=== PATIENT | female | born 1990 | race Two or more races ===

== ENCOUNTER → 2017-06-15 | Outpatient (CLI) | payer OTHER ==
--- NOTE | 2017-06-15 09:09 | US ---
EXAMINATION TYPE: US abdomen complete DATE OF EXAM: 06/15/2017 COMPARISON: NONE CLINICAL HISTORY: R10.13 Epigastric pain. Patient states having epigastric pain since she had a scop e performed. GB removed in 2010 EXAM MEASUREMENTS: Liver Length: 18.2 cm CHD: 1.1 cm Spleen: 12.6 cm Right Kidney: 11.4 x 5.9 x 5.2 cm Left Kidney: 11.5 x 5.8 x 5.4 cm Pancreas: obscured by overlying bowel gas Liver: Enlarged Gallbladder: Surgically absent Evidence for sonographic Carroll's sign: neg CHD: Appears slightly dilated Spleen: wnl Right Kidney: wnl Left Kidney: wnl Upper IVC: wnl Abd Aorta: No AAA visualized as seen, portions of proximal aorta obscured by overlying bowel gas IMPRESSION: 1. Hepatomegaly. 2 postcholecystectomy. Common bile duct at the upper limits of normal 1.1 cm
== END | disposition home or self-care (01) ==
LOC: RADUSMAIN 08:03
PROVIDERS: ATTEND Internal Medicine Gastroenterology
DX: R16.0 Hepatomegaly, not elsewhere classified (principal); Z90.49 Acquired absence of other specified parts of digestive tract
CPT/HCPCS: 76700; 80074

== ENCOUNTER → 2017-07-15 | Outpatient (CLI) | payer OTHER ==
[2017-07-15 10:55] LABS: Bilirubin, Delta 0.1 mg/dL (0.0-0.2); Total Bilirubin 0.2 mg/dL (0.2-1.3); Total Protein 6.8 g/dL (6.3-8.2)
[2017-07-15 16:34] LABS: Iron Saturation 19.94 (12.00-45.00); Iron(FE) 71 ug/dL (50-170); Total Iron Binding Capacity 356 ug/dL (228-460)
[2017-07-15 17:08] LABS: ACTH 8.04 pg/mL (0.00-45.99)
[2017-07-15 18:26] LABS: ANA w/Reflex to Titer NEGATIVE (NEGATIVE)
[2017-07-20 11:36] LABS: Epinephrine 24 Hr Urine <2 ug/day (0-20); Norepinephrine 24 Hr Urine 37 ug/day (15-80); Total Catecholamines Urine 37 ug/day (15-100); Urine Creatinine,24 Hr 1.6 gm/24h (0.8-1.8)
[2017-07-20 11:43] LABS: Metanephrines 24 Hour,Urine 97 ug/day (52-341); Normetanephrine 24 Hour,Urine 304 ug/day (88-444); Total Metanephrines 24 Hour,Ur 401 ug/day (140-785); Urine Creatinine, 24 Hr 1.6 gm/24h (0.8-1.8)
== END | disposition home or self-care (01) ==
LOC: LABWHC1 09:09
PROVIDERS: ATTEND Physician Assistant
DX: R89.9 Unspecified abnormal finding in specimens from other organs, systems and tissues (principal); R74.8 Abnormal levels of other serum enzymes
CPT/HCPCS: 36415; 80076; 82024; 82088; 82103; 82384; 82390; 82530; 82533; 82728; 83516; 83540; 83550; 83835; 84165; 84244; 86038

== ENCOUNTER 2017-12-19 14:55 | Inpatient (IN) | payer MEDICAID, OTHER ==
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
[2017-12-19 15:41] LABS: Amphetamine Screen,Urine Not Detected (NotDetected); Barbiturate Screen,Urine Not Detected (NotDetected); Benzodiazepines Screen,Urine Not Detected (NotDetected); Cocaine Screen,Urine Not Detected (NotDetected); Methadone Screen, Urine Not Detected (NotDetected); Opiate Screen,Urine Detected (NotDetected); Oxycodone Screen, Urine Not Detected (NotDetected); Phencyclidine Screen,Urine Not Detected (NotDetected); Tricyclic Antidepressant,Urine Not Detected (NotDetected); Urn Cannabinoid Scrn Not Detected (NotDetected)
[2017-12-19] MEDS ORDERED: LORazepam 1 MG TAB PO STA (15:59)
[2017-12-19] MEDS ORDERED: MAGNESIUM HYDROXIDE 2,400 MG/10 ML CUP PO PRN (18:23)
[2017-12-19] MEDS ORDERED: ZIPRASIDONE 20 MG VIAL IM PRN (18:23)
[2017-12-19] MEDS ORDERED: MAG HYDROX/AL HYDROX/SIMETH 30 ML CUP PO PRN (18:23)
[2017-12-19] MEDS: NICOTINE 21MG/24HR PATCH TRANSDERM SCH (19:56)
[2017-12-19] MEDS: ACETAMINOPHEN TAB 325 MG TAB PO PRN (21:05)
[2017-12-20] MEDS: GABAPENTIN 300 MG CAP PO SCH ×4 (00:13→20:24)
[2017-12-20] MEDS: CYCLOBENZAPRINE 5 MG TAB PO PRN (00:13)
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
[2017-12-20] MEDS: FUROSEMIDE 20 MG TAB PO SCH (08:52)
[2017-12-20] MEDS: NICOTINE 21MG/24HR PATCH TRANSDERM SCH (08:52)
[2017-12-20] MEDS: LOSARTAN 50 MG TAB PO SCH (08:52)
[2017-12-20] MEDS: lamoTRIgine 100 MG TAB PO SCH (08:53)
[2017-12-20] MEDS ORDERED: NON-FORMULARY DRUG (Vilazodone Hcl [Viibryd] 20 MG) PO SCH (09:00)
[2017-12-20] MEDS ORDERED: clonazePAM 0.5 MG TAB PO SCH (09:00)
[2017-12-20] MEDS ORDERED: GABAPENTIN 300 MG CAP PO SCH (09:00)
[2017-12-20 09:34] LABS: Basophils % (A) 0 %; Eosinophils # (A) 0.2 k/uL (0-0.7); Eosinophils % (A) 3 %; HCT 42.8 % (34.0-46.0); Lymphocytes # (A) 2.2 k/uL (1.0-4.8); Lymphocytes % (A) 28 %; MCH 30.5 pg (25.0-35.0); MCHC 35.1 g/dL (31.0-37.0); Mean Platelet Volume 7.2; Monocytes # (A) 0.4 k/uL (0-1.0); Monocytes % (A) 5 %; Neutrophils # (A) 4.8 k/uL (1.3-7.7); Neutrophils % (A) 62 %; Platelet Count 342 k/uL (150-450); Poikilocytosis Slight; RBC 4.92 m/uL (3.80-5.40); RDW 13.7 % (11.5-15.5); WBC 7.8 k/uL (3.8-10.6)
[2017-12-20 09:44] LABS: ALT 34 U/L (9-52); AST 19 U/L (14-36); Albumin 4.4 g/dL (3.5-5.0); Alkaline Phosphatase 44 U/L (38-126); Anion Gap 13 mmol/L; Blood Urea Nitrogen 12 mg/dL (7-17); Calcium 9.7 mg/dL (8.4-10.2); Carbon Dioxide 28 mmol/L (22-30); Chloride 101 mmol/L (98-107); Cholesterol 123 mg/dL (<200); Glucose 127 mg/dL (74-99); HDL Cholesterol 41 mg/dL (40-60); LDL Cholesterol,Calculated 58 mg/dL (0-99); Potassium 4.2 mmol/L (3.5-5.1); Sodium 142 mmol/L (137-145); Total Bilirubin 0.4 mg/dL (0.2-1.3); Total Protein 6.8 g/dL (6.3-8.2); Triglycerides 122 mg/dL (<150)
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
[2017-12-20] MEDS: hydrOXYzine PAMOATE 25 MG CAP PO PRN ×2 (12:16→20:27)
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
[2017-12-20] MEDS: HYDROcodone/APAP 5-325MG 1 EACH TAB PO PRN ×2 (14:46→21:56)
[2017-12-20] MEDS: IBUPROFEN 800 MG TAB PO SCH ×2 (16:14→20:24)
[2017-12-20 18:46] LABS: Hemoglobin A1C 4.6 % (4.0-6.0)
[2017-12-21] MEDS: NICOTINE 21MG/24HR PATCH TRANSDERM SCH (08:50)
[2017-12-21] MEDS: GABAPENTIN 300 MG CAP PO SCH (08:51)
[2017-12-21] MEDS: FUROSEMIDE 20 MG TAB PO SCH (08:51)
[2017-12-21] MEDS: IBUPROFEN 800 MG TAB PO SCH ×3 (08:51→20:49)
[2017-12-21] MEDS: hydrOXYzine PAMOATE 25 MG CAP PO PRN ×3 (08:52→23:57)
[2017-12-21] MEDS: LOSARTAN 50 MG TAB PO SCH (08:52)
[2017-12-21] MEDS: lamoTRIgine 100 MG TAB PO SCH (08:52)
[2017-12-21] MEDS: HYDROcodone/APAP 5-325MG 1 EACH TAB PO PRN ×3 (08:53→23:56)
[2017-12-21] MEDS: CYCLOBENZAPRINE 5 MG TAB PO PRN (10:34)
[2017-12-21 10:50] LABS: Glucose,Whole Blood 104 mg/dL (75-99)
--- NOTE | 2017-12-21 11:55 | P.PN ---
Progress Note - Text Progress Note Date: 12/21/17 Patient was seen for follow-up examination. She said she is having a bad day. She called her mother yesterday and apparently it didn't go well. She says she is feeling bad about from her daughter who is staying with her ex- boyfriend. She hopes she can return to live with her ex-boyfriend whom she thinks will take care of her and her daughter. She is concerned about going to the alf. She is waiting to talk to her friend Miya about staying with her. She asked if I could increase her Lamictal and Neurontin. She has not been attending groups or socializing with peers. She was encouraged to interact with others and attend groups. This is an obese ambulatory white female with adequate hygiene. She is polite and cooperative. She does not show any psychomotor agitation or retardation. Her speech is spontaneous and goal-directed. Her speech is spontaneous and goal -directed. Her mood is dull and becomes tearful easily when talking about her daughter and being homeless. She continues to deny suicide and homicide thoughts. She denies hallucinations and delusional thinking. She insists that she is not ready to leave the hospital. She is well oriented with adequate memory concentration etc. Plan: Increase Lamictal to 300 mg a day and Neurontin to 400 mg 3 times a day, continue groups and other therapies.
[2017-12-21] MEDS: GABAPENTIN 400 MG CAP PO SCH ×2 (15:54→22:27)
[2017-12-22] MEDS: NICOTINE 21MG/24HR PATCH TRANSDERM SCH (09:00)
[2017-12-22] MEDS: FUROSEMIDE 20 MG TAB PO SCH (09:00)
[2017-12-22] MEDS: IBUPROFEN 800 MG TAB PO SCH ×3 (09:00→20:09)
[2017-12-22] MEDS: GABAPENTIN 400 MG CAP PO SCH ×3 (09:01→20:10)
[2017-12-22] MEDS: lamoTRIgine 100 MG TAB PO SCH (09:01)
[2017-12-22] MEDS: HYDROcodone/APAP 5-325MG 1 EACH TAB PO PRN ×2 (09:05→17:15)
[2017-12-22] MEDS: LOSARTAN 50 MG TAB PO SCH (09:50)
[2017-12-22] MEDS: hydrOXYzine PAMOATE 25 MG CAP PO PRN ×3 (09:51→22:55)
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
[2017-12-22] MEDS: ACETAMINOPHEN TAB 325 MG TAB PO PRN (22:56)
[2017-12-23] MEDS: HYDROcodone/APAP 5-325MG 1 EACH TAB PO PRN ×4 (00:06→23:10)
[2017-12-23] MEDS: GABAPENTIN 400 MG CAP PO SCH ×3 (08:47→21:14)
[2017-12-23] MEDS: FUROSEMIDE 20 MG TAB PO SCH (08:47)
[2017-12-23] MEDS: lamoTRIgine 100 MG TAB PO SCH (08:47)
[2017-12-23] MEDS: NICOTINE 21MG/24HR PATCH TRANSDERM SCH (08:47)
[2017-12-23] MEDS: LOSARTAN 50 MG TAB PO SCH (08:48)
[2017-12-23] MEDS: hydrOXYzine PAMOATE 25 MG CAP PO PRN ×3 (08:48→21:15)
[2017-12-23] MEDS: IBUPROFEN 800 MG TAB PO SCH ×3 (08:48→21:14)
[2017-12-23] MEDS: CYCLOBENZAPRINE 5 MG TAB PO PRN (10:28)
--- NOTE | 2017-12-23 14:24 | P.PN ---
Progress Note - Text Progress Note Date: 12/23/17 Patient was seen for routine follow-up examination. She doesn't have any major psychiatric complaints. But she is homeless, to [facility] is full and she is working with [employer] and [employer] etc. to get subsidized housing and apparently they will help her with this. This is an obese ambulatory white female with good hygiene. She does not show any psychomotor agitation or retardation. Her speech is spontaneous relevant and goal-directed. Her mood is euthymic and affect is appropriate. She denies suicide and homicide thoughts. She denies hallucinations and delusional thinking. She is well oriented with adequate memory concentration etc. Plan: Continue current medication, groups and other therapies and wait for placement before she can be discharged.
[2017-12-23 22:10] LABS: Glucose,Whole Blood 118 mg/dL (75-99)
[2017-12-24] MEDS: hydrOXYzine PAMOATE 25 MG CAP PO PRN ×2 (05:15→08:35)
[2017-12-24 07:03] VITALS: TEMP 97.8
[2017-12-24] MEDS: lamoTRIgine 100 MG TAB PO SCH (08:33)
[2017-12-24] MEDS: GABAPENTIN 400 MG CAP PO SCH ×2 (08:34→15:35)
[2017-12-24] MEDS: FUROSEMIDE 20 MG TAB PO SCH (08:34)
[2017-12-24] MEDS: IBUPROFEN 800 MG TAB PO SCH ×2 (08:34→15:35)
[2017-12-24] MEDS: NICOTINE 21MG/24HR PATCH TRANSDERM SCH (08:35)
[2017-12-24] MEDS: LOSARTAN 50 MG TAB PO SCH (08:35)
[2017-12-24 09:25] VITALS: BP 150/64; PULSE 75; RESP 20
[2017-12-24] MEDS ORDERED: hydrOXYzine PAMOATE 25 MG CAP PO PRN (11:29)
--- NOTE | 2017-12-24 11:34 | P.PN ---
Subjective Progress Note Date: 12/24/17 Patient was seen for follow-up examination. Patient said 25 mg of Vistaril is not working for her anxiety and she agreed to get it increased to 50 mg when necessary. She does not have any other complaint or concerns. She is still homeless and the social service agency director is trying to make placement. This is an obese ambulatory white female with adequate hygiene. She is polite and cooperative. She does not show any psychomotor agitation or retardation. She denies hallucinations, delusional thinking, suicide and homicide thoughts. She is well oriented with adequate memory concentration general knowledge etc. Plan: Continue her medications, change Vistaril from 25-50 mg by mouth 3 times a day when necessary for anxiety, continue groups and other therapies. Objective - Vital Signs Vital signs: Vital Signs Temp 97.8 F 12/24/17 07:03 Pulse 75 12/24/17 09:25 Resp 20 12/24/17 09:25 BP 150/64 12/24/17 09:25 Pulse Ox 99 12/21/17 08:58 - Labs CBC & Chem 7: 12/20/17 08:35 12/20/17 08:35 Labs: Abnormal Lab Results - Last 24 Hours (Table) 12/23/17 Range/Units 21:53 POC Glucose (mg/dL) 118 H (75-99) mg/dL
--- NOTE | 2017-12-24 14:02 | P.DS ---
Providers Date of admission: 12/19/17 18:15 Expected date of discharge: 12/24/17 Attending physician: Rosanna Lake Consults: 12/19/17 20:52 Consult Physician Routine Consulting Provider: Candice Cunningham Consult Reason/Comments: medical management Do you want consulting provider notified?: Already Contacted Primary care physician: Magalie Mckay [facility] Course: Patient had her psychiatric evaluation, physical examination and psychosocial evaluation. After psychiatric evaluation it was agreed to continue her Lamictal and Neurontin, to discontinue why. Benzodiazepines etc. and her medications for physical problems were continued. Next day she requested an increase of her Lamictal and Neurontin and it was done. Patient attended groups , socialized with peers and interacted with staff and got along well. She became free of suicide thoughts and her mood became stable. Since she is homeless it took a while to find a long term for her. Today the group social worker was able to find one and patient agreed for discharge. Condition on discharge: This is an obese ambulatory white female with good hygiene. She does not show any psychomotor agitation or retardation. Her speech is spontaneous relevant and goal-directed. Her mood is euthymic and affect is appropriate. She continues to deny suicide and homicide thoughts, hallucinations and delusional thinking. She is well oriented with adequate memory concentration general knowledge etc. Her insight and judgment seem to have improved. 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 Opioid use disorder moderate to severe F 11.20. Possible malingering Z 76.5. NKDA. Hypertension. Obesity. Chronic pain. Plan - Discharge Summary Discharge Rx Participant: No New Discharge Prescriptions: New Gabapentin [Neurontin] 400 mg PO TID 30 Days #90 cap lamoTRIgine [LaMICtal] 300 mg PO DAILY 30 Days #30 tab Mag Hydrox/Al Hydrox/Simeth [Maalox] 30 ml PO Q4HR PRN cup PRN Reason: Gi Upset Continue Furosemide [Lasix] 20 mg PO DAILY 30 Days #30 tablet Ibuprofen [Motrin] 800 mg PO TID 30 Days #90 tab Losartan Potassium 50 mg PO DAILY 30 Days #30 tablet Discontinued Vilazodone HCl [Viibryd] 20 mg PO QAM lamoTRIgine [LaMICtal] 200 mg PO QAM clonazePAM [KlonoPIN] 1 mg PO TID oxyCODONE-APAP 7.5-325MG [Percocet 7.5-325 mg] 1 tab PO Q6HR PRN PRN Reason: Pain Cephalexin [Keflex] 500 mg PO Q8HR Gabapentin [Neurontin] 300 mg PO TID Cyclobenzaprine [Flexeril] 5 mg PO TID PRN PRN Reason: pain Discharge Medication List Furosemide [Lasix] 20 mg PO DAILY 30 Days #30 tablet 12/24/17 [Rx] Gabapentin [Neurontin] 400 mg PO TID 30 Days #90 cap 12/24/17 [Rx] Ibuprofen [Motrin] 800 mg PO TID 30 Days #90 tab 12/24/17 [Rx] Losartan Potassium 50 mg PO DAILY 30 Days #30 tablet 12/24/17 [Rx] Mag Hydrox/Al Hydrox/Simeth [Maalox] 30 ml PO Q4HR PRN cup 12/24/17 [Rx] lamoTRIgine [LaMICtal] 300 mg PO DAILY 30 Days #30 tab 12/24/17 [Rx] Follow up Appointment(s)/Referral(s): Magalie Mckay MD [Primary Care Provider] - 1-2 days Patient Instructions/Handouts: Generalized Anxiety Disorder (ED)
[2017-12-24] MEDS: HYDROcodone/APAP 5-325MG 1 EACH TAB PO PRN (14:31)
== END 2017-12-24 16:37 | disposition home or self-care (01) | DRG 883 ==
LOC: EC 14:55 → 3MHU 18:15
PROVIDERS: ADMIT Psychiatry & Neurology Psychiatry; ATTEND Psychiatry & Neurology Psychiatry
DX: F60.9 Personality disorder, unspecified (principal); R45.851 Suicidal ideations; Z68.41 Body mass index [BMI] 40.0-44.9, adult; O00.109 Unspecified tubal pregnancy without intrauterine pregnancy; E66.9 Obesity, unspecified; F11.90 Opioid use, unspecified, uncomplicated; F17.210 Nicotine dependence, cigarettes, uncomplicated; F31.9 Bipolar disorder, unspecified; F41.9 Anxiety disorder, unspecified; G89.29 Other chronic pain; I10 Essential (primary) hypertension; M51.24 Other intervertebral disc displacement, thoracic region; K52.9 Noninfective gastroenteritis and colitis, unspecified; Z79.899 Other long term (current) drug therapy; Z59.0 Homelessness; Z76.5 Malingerer [conscious simulation]; Z63.8 Other specified problems related to primary support group; Z65.3 Problems related to other legal circumstances; Z86.14 Personal history of Methicillin resistant Staphylococcus aureus infection; Z90.49 Acquired absence of other specified parts of digestive tract; Z81.8 Family history of other mental and behavioral disorders
CPT/HCPCS: 80053; 80061; 80175; 80306; 81025; 82075; 83036; 84443; 85025; 99284

== ENCOUNTER 2018-04-12 19:46 | Emergency (ER) | payer OTHER ==
[2018-04-12 20:02] VITALS: BP 139/84; PULSE 87; RESP 18; TEMP 98.2
[2018-04-12] MEDS ORDERED: KETOROLAC 30 MG/ML 1 ML VIAL IM STA (20:21)
[2018-04-12] MEDS ORDERED: HYDROcodone/APAP 5-325MG 1 EACH TAB PO STA (20:21)
[2018-04-12] MEDS ORDERED: CEPHALEXIN 500MG STARTER PACK 4 CAP BTL PO STA (20:33)
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
== END 2018-04-12 21:23 | disposition home or self-care (01) ==
LOC: EC 19:46
DX: T25.021A Burn of unspecified degree of right foot, initial encounter (principal); T25.031A Burn of unspecified degree of right toe(s) (nail), initial encounter; T31.0 Burns involving less than 10% of body surface; F17.200 Nicotine dependence, unspecified, uncomplicated; X10.1XXA Contact with hot food, initial encounter; Y93.G3 Activity, cooking and baking; Y92.009 Unspecified place in unspecified non-institutional (private) residence as the place of occurrence of the external cause
CPT/HCPCS: 99283; 16020; 96372; J1885

== ENCOUNTER 2018-04-14 12:24 | Emergency (ER) | payer OTHER ==
[2018-04-14 12:30] VITALS: BP 159/80; PULSE 111; RESP 20; TEMP 98.2
[2018-04-14] MEDS ORDERED: KETOROLAC 60 MG/2 ML VIAL IM STA (12:43)
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
== END 2018-04-14 13:01 | disposition home or self-care (01) ==
LOC: EC 12:24
DX: T25.231D Burn of second degree of right toe(s) (nail), subsequent encounter (principal); F17.200 Nicotine dependence, unspecified, uncomplicated; Z86.14 Personal history of Methicillin resistant Staphylococcus aureus infection; X08.8XXD Exposure to other specified smoke, fire and flames, subsequent encounter
CPT/HCPCS: 99283; 16020; 96372; J1885

== ENCOUNTER 2018-05-21 15:39 | Emergency (ER) | payer OTHER ==
[2018-05-21 15:44] VITALS: BP 131/81; PULSE 93; RESP 18; TEMP 97.6
[2018-05-21] MEDS ORDERED: HYDROcodone/APAP 5-325MG 1 EACH TAB PO STA (15:53)
--- NOTE | 2018-05-21 15:57 | ED ---
General Adult HPI - General Chief complaint: Back Pain/Injury Stated complaint: Back pain Source: patient Mode of arrival: ambulatory Limitations: no limitations - History of Present Illness Initial comments: Dictation was produced using Down dictation software. please excuse any grammatical, word or spelling errors. Chief Complaint: 27-year-old female past medical history of thoracic herniated disc presents with back pain with radiation to the shoulder. History of Present Illness: Patient is a 27-year-old female with past medical history of thoracic herniated disc presents with back pain after fall. Patient states yesterday she was walking to her car when she tripped and fell over her own foot. She landed on her left side. After the fall she noted that she had severe sharp pain to her left thoracic back with radiation to the left shoulder. She states that the pain radiates all the way down to her left humerus area. Patient reports having had an MRI performed in the past that diagnosed her with herniated disc in the thoracic. Patient denies any constitutional symptoms. Patient has any difficulty walking. The ROS documented in this emergency department record has been reviewed and confirmed by me. Those systems with pertinent positive or negative responses have been documented in the HPI. All other systems are other negative and/or noncontributory. - Related Data Previous Rx's Medication Instructions Recorded Furosemide [Lasix] 20 mg PO DAILY 30 Days #30 tablet 12/24/17 lamoTRIgine [LaMICtal] 300 mg PO DAILY 30 Days #30 tab 12/24/17 Cephalexin [Keflex] 500 mg PO Q6H #28 cap 04/12/18 Hydrocodone/Acetaminophen [[place] 1 tab PO Q6HR PRN #12 tab 04/12/18 5-325] SILVER sulfADIAZINE Cream 1 applic TOPICAL BID #60 gram 04/14/18 [Silvadene 1% Cream] Allergies Allergy/AdvReac Type Severity Reaction Status Date / Time No Known Allergies Allergy Verified 05/21/18 15:43 Review of Systems ROS Statement: Those systems with pertinent positive or pertinent negative responses have been documented in the HPI. ROS Other: All systems not noted in ROS Statement are negative. Past Medical History Past Medical History: No Reported History Additional Past Medical History / Comment(s): chronic diarrhea History of Any Multi-Drug Resistant Organisms: MRSA Date of last positivie culture/infection: 2010 MDRO Source:: csection incision Past Surgical History: Adenoidectomy, Section, Cholecystectomy, Tonsillectomy, Tubal Ligation Additional Past Surgical History / Comment(s): c sect x 2,liver bx,rt lymph node removed behind ear Past Anesthesia/Blood Transfusion Reactions: No Reported Reaction Past Psychological History: Anxiety, Bipolar, Depression Smoking Status: Current every day smoker Past Alcohol Use History: None Reported Past Drug Use History: None Reported - Past Family History Mother Family Medical History: No Reported History Father Family Medical History: No Reported History General Exam - General Exam Comments Initial Comments: PHYSICAL EXAM: General Impression: Alert and oriented x3, not in acute distress HEENT: Normocephalic atraumatic, extra-ocular movements intact, pupils equal and reactive to light bilaterally, mucous membranes moist. Cardiovascular: Heart regular rate and rhythm, S1&S2 audible, no murmurs, rubs or gallops Chest: Lungs clear to auscultation bilaterally, no rhonchi, no wheeze, no rales Abdomen: Bowel sounds present, abdomen soft, non-tender, non-distended, no organomegaly Musculoskeletal: Pulses present and equal in all extremities, no peripheral edema, tenderness palpation over the left thoracic spine Motor: Power 5/5 bilaterally, no focal deficits noted Neurological: CN II-XII grossly intact, no focal motor or sensory deficits noted , no spasticity Skin: Intact with no visualized rashes Psych: Normal affect and mood Limitations: no limitations Course Vital Signs 05/21/18 15:40 Temperature 97.6 F Pulse Rate 93 Respiratory 18 Rate Blood Pressure 131/81 O2 Sat by Pulse 98 Oximetry Medical Decision Making - Medical Decision Making ED course: 27-year-old female presents with back pain after fall. She does have radiation to the left shoulder. Patient is of large body habitus. She fell from standing position. On arrival are within acceptable limits. CT imaging was obtained to image the spine looking for dramatic fractures.Shoulder x-ray was obtained showing no acute processes. T and L- spine CT was obtained showing no acute fractures. 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 Patient is notified of these incidental findings patient to follow-up with primary care physician regarding these incidentlinoma. Patient is understandable and agreeable to plan. Disposition Clinical Impression: Back strain Disposition: HOME SELF-CARE Instructions: Acute Low Back Pain (ED) Is patient prescribed a controlled substance at d/c from ED?: No Referrals: Magalie Mckay MD [Primary Care Provider] - 1-2 days Time of Disposition: 17:23
--- NOTE | 2018-05-21 16:27 | XR ---
Left shoulder HISTORY: Trauma and pain 3 views of the left shoulder Bone mineralization, joint spaces and alignment are maintained IMPRESSION: No fracture or dislocation.
--- NOTE | 2018-05-21 17:06 | CT ---
EXAMINATION TYPE: CT thor lumbar spine wo con DATE OF EXAM: 05/21/2018 COMPARISON: None HISTORY: Middle to lower back pain after fall injury CT DLP: 2178 mGycm Automated exposure control for dose reduction was used. Helical acquisition through the thoracic and lumbar spine FINDINGS: There is a spinal curvature. Thoracic and lumbar vertebral bodies show preserved height, alignment, a nd bone mineralization. Disc spaces are maintained. Thoracic and lumbar vertebral bodies are intact. No evident spinal stenosis, or abnormal encroachment, or disc herniation. Calcifications in the subca rinal and precarinal location, left hilar region noted incidentally. Findings are compatible with old granulomatous disease. Patient is post cholecystectomy. Left adrenal low dense focus measures 18 mm and is likely inside account representative an adenoma. IMPRESSION: NO ACUTE FRACTURE OR SUBLUXATION. Additional findings above.
== END 2018-05-21 17:51 | disposition home or self-care (01) ==
LOC: EC 15:39
DX: S29.012A Strain of muscle and tendon of back wall of thorax, initial encounter (principal); D71 Functional disorders of polymorphonuclear neutrophils; D35.02 Benign neoplasm of left adrenal gland; M25.512 Pain in left shoulder; F17.200 Nicotine dependence, unspecified, uncomplicated; Z86.14 Personal history of Methicillin resistant Staphylococcus aureus infection; W01.0XXA Fall on same level from slipping, tripping and stumbling without subsequent striking against object, initial encounter; Y93.01 Activity, walking, marching and hiking
CPT/HCPCS: 72128; 72131; 99284

== ENCOUNTER → 2018-06-08 | Outpatient (CLI) | payer OTHER ==
--- NOTE | 2018-06-08 15:54 | ECHOF ---
Referral Reason:RO7.9 Chest Pain MEASUREMENTS -------- HEIGHT: 180.3 cm WEIGHT: 126.6 kg BP: RVIDd: 2.8 cm (< 3.3) IVSd: 1.1 cm (0.6 - 1.1) LVIDd: 5.2 cm (3.9 - 5.3) LVPWd: 1.3 cm (0.6 - 1.1) IVSs: 1.5 cm LVIDs: 3.2 cm LVPWs: 1.5 cm LAESV Index (A-L): 12.69 ml/m Ao Diam: 3.1 cm (2.0 - 3.7) AV Cusp: 1.7 cm (1.5 - 2.6) LA Diam: 2.8 cm (2.7 - 3.8) MV EXCURSION: 20.824 mm (> 18.000) MV EF SLOPE: 134 mm/s (70 - 150) EPSS: 1.1 cm MV E [place]: 0.85 m/s MV DecT: 248 ms MV A [place]: 0.65 m/s MV E/A Ratio: 1.31 RAP: 5.00 mmHg RVSP: 20.84 mmHg FINDINGS -------- Sinus rhythm. This was a technically adequate study. The left ventricular size is normal. There is borderline concentric left ventricular hypertrophy. Overall left ventricular systolic function is normal with, an EF between 55 - 60 %. The right ventricle is normal in size and function. Normal LA size by volume 22+/-6 ml/m2. The right atrium is normal in size. The aortic valve is trileaflet, and appears structurally normal. No aortic stenosis or regurgitation. The mitral valve is normal. There is trace mitral regurgitation. Trace tricuspid regurgitation present. Right ventricular systolic pressure is normal at < 35 mmHg. There is no evidence of pulmonary hypertension. Trace/mild (physiologic) pulmonic regurgitation. The aortic root size is normal. Normal inferior vena cava with normal inspiratory collapse consistent with estimated right atrial pre ssure of 5 mmHg. There is no pericardial effusion. CONCLUSIONS -------- 1. Sinus rhythm. 2. This was a technically adequate study. 3. The left ventricular size is normal. 4. There is borderline concentric left ventricular hypertrophy. 5. Overall left ventricular systolic function is normal with, an EF between 55 - 60 %. 6. Normal LA size by volume 22+/-6 ml/m2. 7. The aortic valve is trileaflet, and appears structurally normal. No aortic stenosis or regurgitati on. 8. There is trace mitral regurgitation. 9. Trace tricuspid regurgitation present. 10. Right ventricular systolic pressure is normal at < 35 mmHg. 11. There is no evidence of pulmonary hypertension. 12. Trace/mild (physiologic) pulmonic regurgitation. 13. The aortic root size is normal. 14. There is no pericardial effusion. EMERGENCY PREPAREDNESS COORDINATOR: Rachid Mei RDCS
== END ==
LOC: RADECHMAIN 09:46
PROVIDERS: ATTEND Family Medicine
DX: I51.7 Cardiomegaly (principal); I37.1 Nonrheumatic pulmonary valve insufficiency
CPT/HCPCS: 93306

== ENCOUNTER 2018-11-12 12:19 | Emergency (ER) | payer OTHER ==
[2018-11-12] MEDS ORDERED: SODIUM CHLORIDE 0.9% 1,000 ML IV ONE (12:35)
[2018-11-12] MEDS ORDERED: METOCLOPRAMIDE 5 MG/ML 2 ML VIAL IVP STA (12:35)
[2018-11-12] MEDS ORDERED: diphenhydrAMINE 50 MG/ML 1 ML VIAL IVP STA (12:35)
[2018-11-12] MEDS ORDERED: SUCRALFATE 1 GM TAB PO STA (12:39)
[2018-11-12] MEDS ORDERED: FAMOTIDINE 20 MG/2 ML VIAL IV STA (12:39)
[2018-11-12] MEDS ORDERED: MAG HYDROX/AL HYDROX/SIMETH 30 ML CUP PO PRN (12:39)
--- NOTE | 2018-11-12 12:39 | ED ---
General Adult HPI - General Chief complaint: Nausea/Vomiting/Diarrhea Stated complaint: NVD Time Seen by Provider: 11/12/18 12:28 Source: patient Mode of arrival: ambulatory Limitations: no limitations - History of Present Illness Initial comments: Patient is a 28-year-old female presents with chief complaint nausea and vomiting for 4 days. She states that she has a history of irritable bowel syndrome and that this happens to her a few times a year. [facility] Zo[facility]an however this did not help her symptoms. She cannot identify an inciting incident. No aggravating or alleviating factors. Patient has subjective fevers but none documented. - Related Data Previous Rx's Medication Instructions Recorded Furosemide [Lasix] 20 mg PO DAILY 30 Days #30 tablet 12/24/17 lamoTRIgine [LaMICtal] 300 mg PO DAILY 30 Days #30 tab 12/24/17 Cephalexin [Keflex] 500 mg PO Q6H #28 cap 04/12/18 Hydrocodone/Acetaminophen [[place] 1 tab PO Q6HR PRN #12 tab 04/12/18 5-325] SILVER sulfADIAZINE Cream 1 applic TOPICAL BID #60 gram 04/14/18 [Silvadene 1% Cream] Metoclopramide [Reglan] 10 mg PO Q8H PRN #12 tab 11/12/18 Allergies Allergy/AdvReac Type Severity Reaction Status Date / Time No Known Allergies Allergy Verified 11/12/18 12:27 Review of Systems ROS Statement: Those systems with pertinent positive or pertinent negative responses have been documented in the HPI. ROS Other: All systems not noted in ROS Statement are negative. Constitutional: Reports: chills Gastrointestinal: Reports: abdominal pain, nausea, vomiting Past Medical History Past Medical History: No Reported History Additional Past Medical History / Comment(s): chronic diarrhea History of Any Multi-Drug Resistant Organisms: MRSA Date of last positivie culture/infection: 2010 MDRO Source:: csection incision Past Surgical History: Adenoidectomy, Section, Cholecystectomy, Tonsillectomy, Tubal Ligation Additional Past Surgical History / Comment(s): c sect x 2,liver bx,rt lymph node removed behind ear Past Anesthesia/Blood Transfusion Reactions: No Reported Reaction Past Psychological History: Anxiety, Bipolar, Depression Smoking Status: Current every day smoker Past Alcohol Use History: None Reported Past Drug Use History: None Reported - Past Family History Mother Family Medical History: No Reported History Father Family Medical History: No Reported History General Exam Limitations: no limitations General appearance: alert, in no apparent distress Head exam: Present: atraumatic, normocephalic Eye exam: Present: normal appearance ENT exam: Present: normal exam Neck exam: Present: normal inspection Respiratory exam: Present: normal lung sounds bilaterally. Absent: respiratory distress, wheezes Cardiovascular Exam: Present: regular rate, normal rhythm GI/Abdominal exam: Present: soft, tenderness (Epigastric tenderness). Absent: distended Rectal exam: Present: deferred Extremities exam: Present: normal inspection Back exam: Present: normal inspection. Absent: CVA tenderness (R), CVA tenderness (L) Neurological exam: Present: alert, oriented X3, CN II-XII intact, normal gait Psychiatric exam: Present: normal affect, normal mood Skin exam: Present: warm, dry, intact Course Vital Signs 11/12/18 12:25 Temperature 98.6 F Pulse Rate 85 Respiratory 16 Rate Blood Pressure 167/95 O2 Sat by Pulse 100 Oximetry Medical Decision Making - Medical Decision Making Patient presents with chief complaint of nausea and vomiting. On initial evaluation, vitals are stable, patient is in no acute distress. She will be evaluated with basic labs including liver profile lipase, she was given Reglan and Benadryl for nausea, she'll be given a GI cocktail for epigastric pain. 2:24 PM Laboratory evaluation is unremarkable, urinalysis shows hematuria likely secondary to menstruation with 11 WBCs, patient not having symptoms, we'll hold on treatment at this time. On reevaluation, patient feeling improved, she will be discharged with prescriptions for Reglan, and instruction to follow up with primary care in 1-2 days. Return to the emergency department symptoms worsen or change. - Lab Data Result diagrams: 11/12/18 12:44 11/12/18 12:44 Lab Results 11/12/18 11/12/18 11/12/18 Range/Units 12:44 12:44 12:44 WBC 6.6 (3.8-10.6) k/uL RBC 5.52 H (3.80-5.40) m/uL Hgb 16.4 H (11.4-16.0) gm/dL Hct 46.6 H (34.0-46.0) % MCV 84.3 (80.0-100.0) fL MCH 29.7 (25.0-35.0) pg MCHC 35.3 (31.0-37.0) g/dL RDW 12.9 (11.5-15.5) % Plt Count 308 (150-450) k/uL Neutrophils % 77 % Lymphocytes % 13 % Monocytes % 7 % Eosinophils % 1 % Basophils % 0 % Neutrophils # 5.1 (1.3-7.7) k/uL Lymphocytes # 0.9 L (1.0-4.8) k/uL Monocytes # 0.5 (0-1.0) k/uL Eosinophils # 0.0 (0-0.7) k/uL Basophils # 0.0 (0-0.2) k/uL Sodium 138 (137-145) mmol/L Potassium 3.8 (3.5-5.1) mmol/L Chloride 97 L (98-107) mmol/L Carbon Dioxide 27 (22-30) mmol/L Anion Gap 14 mmol/L BUN 11 (7-17) mg/dL Creatinine 0.77 (0.52-1.04) mg/dL Est GFR (CKD-EPI)AfAm >90 (>60 ml/min/1.73 sqM) Est GFR (CKD-EPI)NonAf >90 (>60 ml/min/1.73 sqM) Glucose 109 H (74-99) mg/dL Calcium 9.9 (8.4-10.2) mg/dL Total Bilirubin 0.6 (0.2-1.3) mg/dL AST 28 (14-36) U/L ALT 64 H (9-52) U/L Alkaline Phosphatase 103 (38-126) U/L Total Protein 8.0 (6.3-8.2) g/dL Albumin 4.9 (3.5-5.0) g/dL Lipase 55 (23-300) U/L Urine Color Urine Appearance (Clear) Urine pH (5.0-8.0) Ur Specific [place] (1.001-1.035) Urine Protein (Negative) Urine Glucose (UA) (Negative) Urine Ketones (Negative) Urine Blood (Negative) Urine Nitrite (Negative) Urine Bilirubin (Negative) Urine Urobilinogen (<2.0) mg/dL Ur Leukocyte Esterase (Negative) Urine RBC (0-5) /hpf Urine WBC (0-5) /hpf Ur Squamous Epith Cells (0-4) /hpf Urine Bacteria (None) /hpf Hyaline Casts (0-2) /lpf Urine Mucus (None) /hpf Urine HCG, Qual Not Detected (Not Detectd) 11/12/18 Range/Units 12:44 WBC (3.8-10.6) k/uL RBC (3.80-5.40) m/uL Hgb (11.4-16.0) gm/dL Hct (34.0-46.0) % MCV (80.0-100.0) fL MCH (25.0-35.0) pg MCHC (31.0-37.0) g/dL RDW (11.5-15.5) % Plt Count (150-450) k/uL Neutrophils % % Lymphocytes % % Monocytes % % Eosinophils % % Basophils % % Neutrophils # (1.3-7.7) k/uL Lymphocytes # (1.0-4.8) k/uL Monocytes # (0-1.0) k/uL Eosinophils # (0-0.7) k/uL Basophils # (0-0.2) k/uL Sodium (137-145) mmol/L Potassium (3.5-5.1) mmol/L Chloride (98-107) mmol/L Carbon Dioxide (22-30) mmol/L Anion Gap mmol/L BUN (7-17) mg/dL Creatinine (0.52-1.04) mg/dL Est GFR (CKD-EPI)AfAm (>60 ml/min/1.73 sqM) Est GFR (CKD-EPI)NonAf (>60 ml/min/1.73 sqM) Glucose (74-99) mg/dL Calcium (8.4-10.2) mg/dL Total Bilirubin (0.2-1.3) mg/dL AST (14-36) U/L ALT (9-52) U/L Alkaline Phosphatase (38-126) U/L Total Protein (6.3-8.2) g/dL Albumin (3.5-5.0) g/dL Lipase (23-300) U/L Urine Color Yellow Urine Appearance Cloudy H (Clear) Urine pH 6.0 (5.0-8.0) Ur Specific [place] 1.037 H (1.001-1.035) Urine Protein 2+ H (Negative) Urine Glucose (UA) Negative (Negative) Urine Ketones 4+ H (Negative) Urine Blood Trace H (Negative) Urine Nitrite Negative (Negative) Urine Bilirubin Negative (Negative) Urine Urobilinogen 2.0 (<2.0) mg/dL Ur Leukocyte Esterase Negative (Negative) Urine RBC 13 H (0-5) /hpf Urine WBC 7 H (0-5) /hpf Ur Squamous Epith Cells 4 (0-4) /hpf Urine Bacteria Occasional H (None) /hpf Hyaline Casts 5 H (0-2) /lpf Urine Mucus Many H (None) /hpf Urine HCG, Qual (Not Detectd) Disposition Clinical Impression: Nausea and vomiting Disposition: HOME SELF-CARE Condition: Good Instructions (If sedation given, give patient instructions): Acute Nausea and Vomiting (ED) Prescriptions: Metoclopramide [Reglan] 10 mg PO Q8H PRN #12 tab PRN Reason: Nausea Is patient prescribed a controlled substance at d/c from ED?: No Referrals: Magalie Mckay MD [Primary Care Provider] - 1-2 days
[2018-11-12 13:12] LABS: ALT 64 U/L (9-52); AST 28 U/L (14-36); Albumin 4.9 g/dL (3.5-5.0); Alkaline Phosphatase 103 U/L (38-126); Anion Gap 14 mmol/L; Blood Urea Nitrogen 11 mg/dL (7-17); Calcium 9.9 mg/dL (8.4-10.2); Carbon Dioxide 27 mmol/L (22-30); Chloride 97 mmol/L (98-107); Glucose 109 mg/dL (74-99); Lipase 55 U/L (23-300); Potassium 3.8 mmol/L (3.5-5.1); Sodium 138 mmol/L (137-145); Total Bilirubin 0.6 mg/dL (0.2-1.3)
[2018-11-12 13:15] LABS: Appearance,Urine Cloudy (Clear); Bacteria,Urine Occasional /hpf; Bilirubin,Urine Negative (Negative); Blood,Urine Trace (Negative); Color,Urine Yellow; Glucose,Urine (UA) Negative (Negative); Hyaline Casts,Urine 5 /lpf (0-2); Ketones,Urine 4+ (Negative); Leukocyte Esterase,Urine Negative (Negative); Mucus,Urine Many /hpf; Nitrite,Urine Negative (Negative); Protein,Urine 2+ (Negative); RBC,Urine 13 /hpf (0-5); Specific Gravity,Urine 1.037 (1.001-1.035); Squamous Epithelial Cell,Urine 4 /hpf (0-4); WBC,Urine 7 /hpf (0-5)
[2018-11-12 13:17] LABS: Basophils % (A) 0 %; Eosinophils % (A) 1 %; HCT 46.6 % (34.0-46.0); HGB 16.4 gm/dL (11.4-16.0); Lymphocytes # (A) 0.9 k/uL (1.0-4.8); Lymphocytes % (A) 13 %; MCH 29.7 pg (25.0-35.0); MCHC 35.3 g/dL (31.0-37.0); MCV 84.3 fL (80.0-100.0); Mean Platelet Volume 7.3; Monocytes # (A) 0.5 k/uL (0-1.0); Monocytes % (A) 7 %; Neutrophils # (A) 5.1 k/uL (1.3-7.7); Neutrophils % (A) 77 %; Platelet Count 308 k/uL (150-450); RBC 5.52 m/uL (3.80-5.40); RDW 12.9 % (11.5-15.5); WBC 6.6 k/uL (3.8-10.6)
[2018-11-12 14:47] VITALS: BP 112/59; PULSE 72; RESP 18; TEMP 98.7
== END 2018-11-12 14:47 | disposition home or self-care (01) ==
LOC: EC 12:19
DX: R11.2 Nausea with vomiting, unspecified (principal); R19.7 Diarrhea, unspecified; R50.9 Fever, unspecified; R10.13 Epigastric pain; R31.9 Hematuria, unspecified; R10.816 Epigastric abdominal tenderness; Z32.02 Encounter for pregnancy test, result negative; F17.200 Nicotine dependence, unspecified, uncomplicated; Z90.49 Acquired absence of other specified parts of digestive tract
CPT/HCPCS: 36415; 80053; 83690; 85025; 81001; 81025; 99284; 96374; 96375 ×2; 96361 ×2; J1200; J2765